=== PATIENT | female | born 1970 | race Caucasian/White ===

== ENCOUNTER 2017-02-17 07:36 | Emergency (ER) | payer BC ==
[~2017-02-17] VITALS: Ht 162.6 cm; Wt 58.0 kg
[~2017-02-17 07:36] MED LIST: ALBU18HF INHALATION; ALBU2.5V3 NEB; ALBU8.5H3 INH; ASPI-664 PO; MECL25TA2 PO; ONDA4TAB35 PO; PRED20TA PO; QUIN20TA23 PO
[2017-02-17 07:40] VITALS: Ht 162.6 cm; Wt 58.0 kg
[2017-02-17] MEDS ORDERED: ALBUTEROL 0.5% (NEB) 2.5 MG/0.5 ML AMP INH STA (07:59)
[2017-02-17] MEDS ORDERED: IPRATROPIUM (NEB) 0.5 MG/2.5 ML AMP INH STA (07:59)
[2017-02-17] MEDS ORDERED: METHYLPREDNISOLONE 125 MG INJ IM STA (07:59)
--- NOTE | 2017-02-17 08:04 | ERD ---
ER Documentation Chief Complaint Date/Time DATE: 02/17/17 Chief Complaint Asthma exacerbation HPI The patient is a 36-year-old female with past medical history of asthma, who presents to the Emergency Department with complaint of asthma exacerbation. The patient reports that approximately one week ago she developed URI-type symptoms, with onset of mild nonproductive cough, rhinorrhea and nasal congestion. She has been experiencing intermittent wheezing, though has been using her Ventolin HFA inhaler as directed. Over the past two days, she has noted increased wheezing, that does not resolve after use of her handheld inhaler. Therefore, she presents today. She admits to mild shortness of breath. Otherwise, denies chest pain, palpitations, lower extremity edema, calf swelling or calf tenderness. Denies recent travel, surgeries, procedures, or exogenous estrogen use. Denies history of DVT, PE, ACS, CHF, COPD. Denies prior hospitalizations or intubations secondary to asthma. Denies any sick contacts with similar symptoms. ROS All systems reviewed and are negative except as per history of present illness. Medications Home Meds Active Scripts Prednisone* (Prednisone*) 20 Mg Tab, 40 MG PO DAILY for 4 Days, TAB Prov:TENISHA GARCIA PA-C 02/17/17 Albuterol Sulfate* (Ventolin HFA*) 18 Gm Hfa.aer.ad, 2 PUFF INHALATION Q4H, #1 INHALER Prov:TENISHA GARCIA PA-C 02/17/17 Albuterol Sulfate* (Albuterol Sulfate* Neb) 0.083%-3 Ml Neb, 2.5 MG NEB Q4 Y for SHORTNESS OF BREATH, #30 EA Prov:SEAN ALBA PA-C 10/04/16 Albuterol Sulfate* (Proair HFA*) 8.5 Gm Hfa.aer.ad, 2 PUFF INH Q4, #1 INHALER Prov:SEAN ALBA PA-C 10/04/16 Prednisone* (Prednisone*) 20 Mg Tab, 40 MG PO DAILY for 4 Days, TAB Prov:SEAN ALBA PA-C 10/04/16 Prednisone* (Prednisone*) 20 Mg Tab, 40 MG PO DAILY for 4 Days, TAB Prov:TOM NGO DO 05/17/16 Albuterol Sulfate* (Ventolin HFA*) 18 Gm Hfa.aer.ad, 2 PUFF INHALATION Q4H, #1 INHALER Prov:TOM NGO DO 05/17/16 Ondansetron Hcl* (Zofran* ODT) 4 mg -ODT Tab.disper, 4 MG PO Q6 Y for NAUSEA AND /OR VOMITING, #8 TAB Prov:KARLI HERNANDEZ DO 04/07/16 Meclizine Hcl* (Antivert*) 25 Mg Tablet, 25 MG PO Q6H Y for DIZZINESS, #12 TAB Prov:KARLI HERNANDEZ DO 04/07/16 Reported Medications Quinapril Hcl (Quinapril Hcl) 20 Mg Tablet, 20 MG PO DAILY, #30 TAB 05/17/16 Aspirin* (Aspirin* EC) 81 Mg Tablet.dr, 81 MG PO DAILY, TAB 05/17/16 Allergies Allergies: Coded Allergies: No Known Allergy (Unverified , 04/07/16) PMhx/Soc History of Surgery: No Anesthesia Reaction: No Hx Neurological Disorder: No Hx Respiratory Disorders: Yes (ASTHMA) Hx Cardiac Disorders: No Hx Psychiatric Problems: No Hx Miscellaneous Medical Probl: No Hx Alcohol Use: No Hx Substance Use: No Hx Tobacco Use: No Smoking Status: Never smoker Physical Exam Vitals Vital Signs Date Time Temp Pulse Resp B/P Pulse Ox O2 Delivery O2 Flow Rate FiO2 02/17/17 08:24 84 20 97 21 02/17/17 07:40 98.1 84 18 140/65 98 Physical Exam GENERAL: Well-developed, well-nourished, female, in no acute respiratory distress. HEENT: Head is normocephalic, atraumatic. No scleral pallor or icterus. Pupils equal, round and reactive to light. Extraocular movements intact. Conjunctiva pink. Bilaterally tympanic membranes are clear with no evidence of erythema, effusion or dulling of the light reflex. Moist mucous membranes. No pharyngeal erythema or exudates. Uvula is midline. No trismus. No stridor. No excessive drooling. Phonation is normal. NECK: Supple. No masses, no tenderness, no lymphadenopathy. Trachea midline. No nuchal rigidity. No meningismus. Range of motion. RESPIRATORY: Scattered wheezes bilaterally. No rales or rhonchi. No accessory muscle use. Symmetric expansion. CARDIOVASCULAR: Regular rate and rhythm. S1 and S2 normal. No murmurs, rubs, or gallops. Distal pulses are palpable, 2+ bilaterally. Capillary refill is less than 2 seconds. GASTROINTESTINAL: Abdomen is soft, non-tender, and non-distended. EXTREMITIES: No clubbing, cyanosis, or edema. Normal skin perfusion. Moving all extremities. Muscle tone is normal. No focal swelling or erythema. NEUROLOGIC: The patient is alert, awake, and oriented x 3. No focal neurologic deficits. INTEGUMENT: Skin is intact. Warm and dry. No rashes, no petechiae present. PSYCHIATRIC: Cooperative. Appropriate. Results 24 hrs Current Medications Medications (Trade) Dose Ordered Sig/Osbaldo Route PRN Reason Start Time Stop Time Status Last Admin Dose Admin Albuterol (Proventil 0.5% (Neb)) 5 mg ONCE STAT INH 02/17/17 07:59 02/17/17 08:02 DC 02/17/17 08:21 Ipratropium [place] (Atrovent 0.02% (Neb)) 1 mg ONCE STAT INH 02/17/17 07:59 02/17/17 08:02 DC 02/17/17 08:21 Methylprednisolone Sodium Succinate (Solu-Medrol) 125 mg ONCE STAT IM 02/17/17 07:59 02/17/17 08:02 DC 02/17/17 08:06 Procedures/MDM DIAGNOSTIC TESTS AND INTERPRETATION: PROCEDURE: XR Chest. CLINICAL INDICATION: Asthma TECHNIQUE: Single frontal view of the chest was obtained COMPARISON: 10/04/2016 FINDINGS:The heart and mediastinum are within normal limits. The lungs are clear. There is no pleural effusion or pneumothorax. IMPRESSION:No acute disease. .Ancelmo Calvillo MD, MD Date Time Electronically viewed and signed by .Ancelmo Calvillo MD, on 02/17/2017 08: 34 MEDICAL DECISION MAKING: This is a 46-year-old female presenting to the emergency department with recent onset of cough, rhinorrhea, nasal congestion, wheezing and shortness of breath. Patient noted to have wheezing auscultated throughout bilateral lung guillen on physical examination, though with no rales, no rhonchi. She was placed in a room and observed. The patient was given Albuterol and Atrovent breathing treatments. Solu-Medrol 125 mg IM was also administered. After rest, a period of observation, medication and breathing treatment, the patient had resolution of her wheezing, and felt significantly better. Her lungs are now clear to auscultation bilaterally, with no rales, rhonchi or wheezing. No intercostal retractions, nasal flaring, accessory muscle use or signs of respiratory distress. Chest x-ray with no acute cardiopulmonary abnormalities. Upon review and interpretation of the patient's presentation and overall ER course, I believe the patient's symptoms to be consistent with upper respiratory infection and asthma exacerbation. Clinical presentation is not consistent with pneumonia, acute coronary syndrome, pulmonary embolism, acute respiratory distress syndrome, status asthmaticus, sinusitis, otitis media, otitis externa, pharyngitis, airway obstruction, anaphylaxis, pneumothorax, acute/surgical abdomen, sepsis, dehydration or meningitis. At this time, the patient is in stable condition, and no longer experiencing any wheezing or shortness of breath, and therefore can be discharged home with prescriptions for a short course of prednisone and Ventolin HFA. She is advised to follow-up with her primary care provider for reevaluation and further management within 1-2 days, or return to the ER sooner for any new or worsening symptoms. I shared my medical decision making and plan with the patient at length and in great detail, and she verbally understands and agrees with the plan for further observation and care as an outpatient. At the time of discharge, all questions were answered. Departure Diagnosis: Primary Impression: Asthma with acute exacerbation Asthma severity: unspecified severity Qualified Code: J45.901 - Asthma with acute exacerbation, unspecified asthma severity Additional Impression: Upper respiratory infection URI type: unspecified URI Qualified Code: J06.9 - Upper respiratory tract infection, unspecified type Condition: Stable Patient Instructions: Asthma, Asthma, Acute (Adult) Additional Instructions: Llame al doctor MAANA y dominick alexandre HARMAN PARA DENTRO DE 1-2 RUSSELL.Dgale a la secretaria que nosotros le instruimos hacer esta harman.Avise o llame si weaver condicin se empeora antes de la harman. Regresa aqui si peor o no mejor. TENISHA GARCIA PA-C Feb 17, 2017 08:04
--- NOTE | 2017-02-17 08:34 | RADRPT ---
PROCEDURE: XR Chest. CLINICAL INDICATION: Asthma TECHNIQUE: Single frontal view of the chest was obtained COMPARISON: 10/04/2016 FINDINGS: The heart and mediastinum are within normal limits. The lungs are clear. There is no pleural effusion or pneumothorax. RPTAT: AA IMPRESSION: No acute disease. .Ancelmo Calvillo MD, MD Date Time Electronically viewed and signed by .Ancelmo Calvillo MD, on 02/17/2017 08:34 .S/
[2017-02-17] MEDS ORDERED: PRED20TA PO ×2 (09:13→09:14)
[2017-02-17] MEDS ORDERED: ALBU18HF INHALATION (09:13)
[2017-02-17 09:35] VITALS: BP 144/73; PULSE 78; RESP 18; TEMP 97.8
== END 2017-02-17 09:35 | disposition home or self-care (01) ==
LOC: FTE 07:36
DX: J45.901 Unspecified asthma with (acute) exacerbation (principal); J06.9 Acute upper respiratory infection, unspecified; Z79.82 Long term (current) use of aspirin
CPT/HCPCS: 71010; 94644; 96372; 99284; J2930; Z7610

== ENCOUNTER 2017-05-18 11:25 | Emergency (ER) | payer BC ==
[~2017-05-18] VITALS: Ht 160 cm; Wt 59.5 kg
[2017-05-18 11:30] VITALS: Ht 160 cm; Wt 59.5 kg
[2017-05-18 12:29] LABS: BASOPHIL # 0.1 10^3/ul (0.0-0.1); BASOPHILS % 0.6 % (0.0-2.0); EOSINOPHILS # 0.3 10^3/ul (0.0-0.5); EOSINOPHILS % 3.2 % (0.0-7.0); HEMATOCRIT 40.3 % (37.0-47.0); HEMOGLOBIN 13.1 g/dl (12.0-16.0); LYMPHOCYTES # 1.7 10^3/ul (0.8-2.9); LYMPHOCYTES % 20.7 % (15.0-51.0); MEAN CORPUSCULAR HEMOGLOBIN 31.3 pg (29.0-33.0); MEAN CORPUSCULAR HGB CONC 32.5 g/dl (32.0-37.0); MEAN CORPUSCULAR VOLUME 96.4 fl (82.0-101.0); MEAN PLATELET VOLUME 12.1 fl (7.4-10.4); MONOCYTE # 0.6 10^3/ul (0.3-0.9); MONOCYTES % 6.9 % (0.0-11.0); NEUTROPHIL # 5.7 10^3/ul (1.6-7.5); NEUTROPHILS % 68.2 % (39.0-77.0); PLATELET COUNT 186 10^3/UL (140-415); RED BLOOD COUNT 4.18 10^6/ul (4.20-5.40); RED CELL DISTRIBUTION WIDTH 12.4 % (11.5-14.5); WHITE BLOOD COUNT 8.4 10^3/ul (4.8-10.8)
[2017-05-18 12:51] LABS: ANION GAP 16 (8-16); BLOOD UREA NITROGEN 9 mg/dl (7-20); CALCIUM 9.5 mg/dl (8.4-10.2); CARBON DIOXIDE 27 mmol/L (21-31); CHLORIDE 105 mmol/L (97-110); CREATININE 0.63 mg/dl (0.44-1.00); GLUCOSE 95 mg/dl (70-220); POTASSIUM 3.6 mmol/L (3.5-5.1); SODIUM 144 mmol/L (135-144)
[2017-05-18 13:00] LABS: TROPONIN-I < 0.012 ng/ml (0.00-0.12)
--- NOTE | 2017-05-18 13:38 | RADRPT ---
PROCEDURE: XR Chest. CLINICAL INDICATION: chest pain TECHNIQUE: Single frontal view of the chest was obtained COMPARISON: 02/17/2017 FINDINGS: The heart and mediastinum are within normal limits. The lungs are clear. There is no pleural effusion or pneumothorax. RPTAT: AA IMPRESSION: No acute disease. .Ancelmo Calvillo MD, MD Date Time Electronically viewed and signed by .Ancelmo Calvillo MD, on 05/18/2017 13:38 .S/
[2017-05-18 15:24] VITALS: BP 139/75; PULSE 80; RESP 16; TEMP 98.6
--- NOTE | 2017-05-18 20:40 | ERD ---
ER Documentation Chief Complaint Date/Time DATE: 05/18/17 TIME: 20:37 Chief Complaint states this morning blood pressure was high but didn't take medication HPI Patient is a 38-year-old female to the presents to the emergency department for concerns of an elevated blood pressure. Patient states she was drinking cat tea for the first when she felt slight dizzy earlier earlier this morning. Patient states using her sister's blood pressure machine, she checked her blood pressure and it was elevated to be 170/80. Patient states she rushed to the ED. Patient denies taking any blood pressure medication today. Patient states she does feel some mild chest discomfort and tightness intermittent over last two days. Patient denies any radiation of the pain. Patient denies any shortness of breath. Pain is nonpleuritic. Patient currently denies any pain or dizziness. Patient denies any headache, blurry vision, nausea, vomiting, abdominal pain, left upper extremity pain, diaphoresis or loss of consciousness. Patient denied any hx of PE/DVT, recent surgeries, travel, exogenous estrogen use. ROS All systems reviewed and are negative except as per history of present illness. Medications Home Meds Active Scripts Prednisone* (Prednisone*) 20 Mg Tab, 40 MG PO DAILY for 4 Days, TAB Prov:TENISHA GARCIA PA-C 02/17/17 Albuterol Sulfate* (Ventolin HFA*) 18 Gm Hfa.aer.ad, 2 PUFF INHALATION Q4H, #1 INHALER Prov:TENISHA GARCIA PA-C 02/17/17 Albuterol Sulfate* (Albuterol Sulfate* Neb) 0.083%-3 Ml Neb, 2.5 MG NEB Q4 Y for SHORTNESS OF BREATH, #30 EA Prov:SEAN ALBA PA-C 10/04/16 Albuterol Sulfate* (Proair HFA*) 8.5 Gm Hfa.aer.ad, 2 PUFF INH Q4, #1 INHALER Prov:SEAN ALBA PA-C 10/04/16 Prednisone* (Prednisone*) 20 Mg Tab, 40 MG PO DAILY for 4 Days, TAB Prov:SEAN ALBA PA-C 10/04/16 Prednisone* (Prednisone*) 20 Mg Tab, 40 MG PO DAILY for 4 Days, TAB Prov:TOM NGO DO 7/25/16 Albuterol Sulfate* (Ventolin HFA*) 18 Gm Hfa.aer.ad, 2 PUFF INHALATION Q4H, #1 INHALER Prov:TOM NGO DO 05/17/16 Ondansetron Hcl* (Zofran* ODT) 4 mg -ODT Tab.disper, 4 MG PO Q6 Y for NAUSEA AND /OR VOMITING, #8 TAB Prov:KARLI HERNANDEZ DO 04/07/16 Meclizine Hcl* (Antivert*) 25 Mg Tablet, 25 MG PO Q6H Y for DIZZINESS, #12 TAB Prov:KARLI HERNANDEZ DO 04/07/16 Reported Medications Quinapril Hcl (Quinapril Hcl) 20 Mg Tablet, 20 MG PO DAILY, #30 TAB 05/17/16 Aspirin* (Aspirin* EC) 81 Mg Tablet.dr, 81 MG PO DAILY, TAB 05/17/16 Allergies Allergies: Coded Allergies: No Known Allergy (Unverified , 04/07/16) PMhx/Soc History of Surgery: No Anesthesia Reaction: No Hx Neurological Disorder: No Hx Respiratory Disorders: Yes (ASTHMA) Hx Cardiac Disorders: No Hx Psychiatric Problems: No Hx Miscellaneous Medical Probl: No Hx Alcohol Use: No Hx Substance Use: No Hx Tobacco Use: No Smoking Status: Never smoker FmHx Family History: No diabetes Physical Exam Vitals Vital Signs Date Time Temp Pulse Resp B/P Pulse Ox O2 Delivery O2 Flow Rate FiO2 05/18/17 15:24 98.6 80 16 139/75 100 Room Air 05/18/17 11:30 98.1 85 18 168/79 97 Physical Exam GENERAL: Well-developed, well-nourished female. Appears in no acute distress. HEAD: Normocephalic, atraumatic. EYES: Pupils are equally reactive bilaterally. EOMs grossly intact. No conjunctival erythema. ENT: Moist mucous membranes. No uvula deviation. No kissing tonsils. NECK: Supple. No meningismus. Normal range of motion of the neck. LUNG: Clear to auscultation bilaterally. No rhonchi, wheezing, rales or coarse breath sounds. HEART: Regular rate and rhythm. No murmurs, rubs or gallops. BACK: No midline tenderness. EXTREMITIES: Equal pulses bilaterally. No peripheral clubbing, cyanosis or edema. No unilateral leg swelling. NEUROLOGIC: Alert and oriented x3, cooperative. Mood and affect appropriate to situation. Cranial nerves II through XII are grossly intact. Normal speech. Motor exam: 5/5 strength in upper and lower extremities. Sensory exam: Sensation intact to light touch on all four extremities. Cerebellar function exam: No dysmetria on [id number] test. Steady gait. No pronator drift. SKIN: Normal color. Warm and dry. No rashes or lesions. Result Diagram: 05/18/17 1215 05/18/17 1215 Results 24 hrs Laboratory Tests Test 05/18/17 12:15 White Blood Count 8.410^3/ul Red Blood Count 4.1810^6/ul Hemoglobin 13.1g/dl Hematocrit 40.3% Mean Corpuscular Volume 96.4fl Mean Corpuscular Hemoglobin 31.3pg Mean Corpuscular Hemoglobin Concent 32.5g/dl Red Cell Distribution Width 12.4% Platelet Count 88679^3/UL Mean Platelet Volume 12.1fl Neutrophils % 68.2% Lymphocytes % 20.7% Monocytes % 6.9% Eosinophils % 3.2% Basophils % 0.6% Nucleated Red Blood Cells % 0.0/100WBC Neutrophils # 5.710^3/ul Lymphocytes # 1.710^3/ul Monocytes # 0.610^3/ul Eosinophils # 0.310^3/ul Basophils # 0.110^3/ul Nucleated Red Blood Cells # 0.010^3/ul Sodium Level 144mmol/L Potassium Level 3.6mmol/L Chloride Level 105mmol/L Carbon Dioxide Level 27mmol/L Anion Gap 16 Blood Urea Nitrogen 9mg/dl Creatinine 0.63mg/dl Glucose Level 95mg/dl Calcium Level 9.5mg/dl Troponin I < 0.012ng/ml Procedures/MDM ED COURSE: The patient was stable throughout ED course. I kept the patient and/or family informed of laboratory and diagnostic imaging results throughout the ED course. Of note, patient did take her BP home medications while waiting for blood work and imaging results. EKG: Read by Dr. Man, attending physician. EKG shows normal sinus rhythm at a rate of 79 bpm. No arrhythmias, acute ST elevations or T wave changes were noted. DIAGNOSTIC IMAGING: Read by radiologist. Patient: YURI DELEON : 1970 Age: 46 Sex: F [id number] DOS: 05/18/17 1201 Ordering MD: ASHWINI LUA PA-C Location: [facility] Room/Bed: PROCEDURE: XR Chest. CLINICAL INDICATION: chest pain TECHNIQUE: Single frontal view of the chest was obtained COMPARISON: 02/17/2017 FINDINGS: The heart and mediastinum are within normal limits. The lungs are clear. There is no pleural effusion or pneumothorax. RPTAT: AA IMPRESSION: No acute disease. .Ancelmo Calvillo MD, MD Date Time Electronically viewed and signed by .Ancelmo Calvillo MD, on 05/18/2017 13: 38 .S/ CC: ASHWINI LUA PA-C MEDICAL DECISION MAKING: This is a 46 year old female who presents to the ED with concerns of dizziness, elevated BP and intermittent CP x 2 days. Patient denied any dizziness or chest pain at this time. Vital signs were reviewed. Patient was afebrile. Patient was not hypoxic. Cardiac exam was normal. Lung exam was normal. Full neuro was negative. EKG was within normal limits, reviewed by ED physician. CXR was within normal limits. Low suspicion for acute coronary syndrome, arrhythmia or pericarditis. Trop was negative. CBC showed no signs of anemia or systemic infection.CMP showed no evidence of electrolyte abnormalities, severe acidosis, alkalosis, renal failure, or liver disease. Patient's heart score was calculated to be 2, low risk at this time for major cardiac adverse effect. Low suspicion for ACS, pericarditis, aortic dissection, pneumothorax, pneumonia or pleural effusion. BP was improved prior to discharge. Given these findings, the patients presentation is most consistent with elevated blood pressure and chest pain of unknown etiology. Patient was advised to take BP medication as prescribed and keep log of BP readings to show her PCP at followup visit. DISCHARGE: At this time, patient is stable for discharge and outpatient management. A copy of all imaging and blood work studies obtained were given to the patient. I have instructed the patient to follow-up with his/her primary care physician in 1-2 days. If symptoms persist, patient may need to see a specialist for further examinations and testing. I have instructed the patient to promptly return to the ER at any time for any new or worsening symptoms including increased increased pain, fever, nausea, vomiting, numbness, weakness, diaphoresis or LOC. The patient and/or family expressed understanding of and agreement with this plan. All questions were answered. Home care instructions were provided. Patients blood pressure was elevated (>120/80) but appears stable without evidence of hypertensive emergency, hypertensive urgency or end-organ failure. I had discussion with the patient about the risks of hypertension. I have advised the patient to follow up with his/her primary care physician for outpatient monitoring and treatment for hypertension in 2-3 days. I have instructed the patient to return to the ER for any new or worsening symptoms including chest pain, shortness of breath, headache, blurred vision, confusion, nausea, vomiting or LOC. Departure Diagnosis: Primary Impression: Hypertension Hypertension type: unspecified secondary hypertension Qualified Code: I15.9 - Secondary hypertension Additional Impression: Chest pain Condition: Stable Patient Instructions: High Blood Pressure (Hypertension) Referrals: MADIE KUO MD (PCP) Additional Instructions: Follow-up with your primary care physician for further management of your elevated blood pressures. He may need medication changes. Return to the emergency department for any new or worsening symptoms including but not limited to severe pain, chest pain, shortness of breath, nausea, vomiting, diaphoresis or loss of consciousness. Call your primary care doctor TOMORROW for an appointment during the next 1-2 days.See the doctor sooner or return here if your condition worsens before your appointment time. ASHWINI LUA PA-C May 18, 2017 20:40
== END 2017-05-18 15:26 | disposition home or self-care (01) ==
LOC: FTE 11:25
DX: I15.9 Secondary hypertension, unspecified (principal); R07.9 Chest pain, unspecified; J45.909 Unspecified asthma, uncomplicated
CPT/HCPCS: 71010; 80048; 84484; 85025; 93005

== ENCOUNTER 2017-07-16 16:24 | Emergency (ER) | payer BC ==
[~2017-07-16] VITALS: Ht 152.4 cm; Wt 58.0 kg
[2017-07-16 16:30] VITALS: Ht 152.4 cm; Wt 58.0 kg
[2017-07-16] MEDS ORDERED: DEXAMETHASONE 10 MG/ML 1 ML INJ IM STA (16:42)
[2017-07-16] MEDS ORDERED: ALBUTEROL 0.083% (NEB) 2.5 MG/3 ML AMP NEB STA (16:42)
[2017-07-16] MEDS ORDERED: IPRATROPIUM (NEB) 0.5 MG/2.5 ML AMP NEB STA (16:42)
--- NOTE | 2017-07-16 16:44 | ERD ---
ER Documentation Chief Complaint Date/Time DATE: 07/16/17 TIME: 16:43 Chief Complaint EXACERBATION OF ASTHMA, BILAT WHEEZES NOTED, SOB AT REST HPI 46-year-old female is here for asthma exacerbation. She has a history of asthma and this particular exacerbation began early this morning. She tried her inhaler but it did not help. No fever. No chest pain. ROS All systems reviewed and are negative except as per history of present illness. Medications Home Meds Active Scripts Albuterol Sulfate* (Proair HFA*) 8.5 Gm Hfa.aer.ad, 2 PUFF INH Q4H Y for WHEEZING AND SOB, #1 INHALER Prov:KIA TA PA-C 07/16/17 Prednisone* (Prednisone*) 20 Mg Tab, 40 MG PO DAILY for 4 Days, TAB Prov:TENISHA GARCIA PA-C 02/17/17 Albuterol Sulfate* (Ventolin HFA*) 18 Gm Hfa.aer.ad, 2 PUFF INHALATION Q4H, #1 INHALER Prov:TENISHA GARCIA PA-C 02/17/17 Albuterol Sulfate* (Albuterol Sulfate* Neb) 0.083%-3 Ml Neb, 2.5 MG NEB Q4 Y for SHORTNESS OF BREATH, #30 EA Prov:SEAN ALBA PA-C 10/04/16 Albuterol Sulfate* (Proair HFA*) 8.5 Gm Hfa.aer.ad, 2 PUFF INH Q4, #1 INHALER Prov:SEAN ALBA PA-C 10/04/16 Prednisone* (Prednisone*) 20 Mg Tab, 40 MG PO DAILY for 4 Days, TAB Prov:SEAN ALBA PA-C 10/04/16 Prednisone* (Prednisone*) 20 Mg Tab, 40 MG PO DAILY for 4 Days, TAB Prov:TOM NGO DO 05/17/16 Albuterol Sulfate* (Ventolin HFA*) 18 Gm Hfa.aer.ad, 2 PUFF INHALATION Q4H, #1 INHALER Prov:TOM NGO DO 05/17/16 Ondansetron Hcl* (Zofran* ODT) 4 mg -ODT Tab.disper, 4 MG PO Q6 Y for NAUSEA AND /OR VOMITING, #8 TAB Prov:KARLI HERNANDEZ DO 04/07/16 Meclizine Hcl* (Antivert*) 25 Mg Tablet, 25 MG PO Q6H Y for DIZZINESS, #12 TAB Prov:KARLI HERNANDEZ DO 04/07/16 Reported Medications Quinapril Hcl (Quinapril Hcl) 20 Mg Tablet, 20 MG PO DAILY, #30 TAB 05/17/16 Aspirin* (Aspirin* EC) 81 Mg Tablet.dr, 81 MG PO DAILY, TAB 05/17/16 Allergies Allergies: Coded Allergies: No Known Allergy (Unverified , 07/16/17) PMhx/Soc History of Surgery: No Anesthesia Reaction: No Hx Neurological Disorder: No Hx Respiratory Disorders: Yes (ASTHMA) Hx Cardiac Disorders: No Hx Psychiatric Problems: No Hx Miscellaneous Medical Probl: No Hx Alcohol Use: No Hx Substance Use: No Hx Tobacco Use: No FmHx Family History: No diabetes Physical Exam Vitals Vital Signs Date Time Temp Pulse Resp B/P Pulse Ox O2 Delivery O2 Flow Rate FiO2 07/16/17 17:18 89 18 97 21 07/16/17 16:54 88 18 96 21 07/16/17 16:30 98.3 98 22 171/91 99 Physical Exam INITIAL VITAL SIGNS: Reviewed by me GENERAL: Awake, alert and oriented x 4, well appearing, nontoxic, speaking in full sentences. No acute distress HEAD: Atraumatic RESPIRATORY: Bilateral respiratory wheezing symmetric chest wall rise. Peaks in full sentences. No accessory muscle use. CV: Regular rate and rhythm. No murmurs, rubs, or gallops. Results 24 hrs Current Medications Medications (Trade) Dose Ordered Sig/Osbaldo Route PRN Reason Start Time Stop Time Status Last Admin Dose Admin Albuterol (Proventil 0.083% (Neb)) 2.5 mg ONCE STAT NEB 07/16/17 16:42 07/16/17 16:43 DC 07/16/17 16:52 Ipratropium [place] (Atrovent 0.02% (Neb)) 0.5 mg ONCE STAT NEB 07/16/17 16:42 07/16/17 16:43 DC 07/16/17 16:52 Dexamethasone (Decadron) 10 mg ONCE STAT IM 07/16/17 16:42 07/16/17 16:43 DC 07/16/17 17:22 Albuterol (Proventil 0.5% (Neb)) 10 mg ONCE STAT INH 07/16/17 17:11 07/16/17 17:12 DC 07/16/17 17:17 Procedures/MDM Ple[place] 46-year-old nondiabetic female presents with asthma exacerbation. The differential diagnosis includes but is not limited to asthma, COPD, pneumonia, pulmonary embolus, pleural effusion, congestive heart failure, and others. She does have inspiratory wheezing on examination. She was given Decadron IM and a breathing treatment with improvement of her symptoms and discharged home with albuterol inhaler. Patient counseled regarding my diagnostic impression and care plan. Prior to discharge all questions answered. Pt agrees with treatment plan and understands strict return precautions. Pt is instructed to follow up with primary care provider within 24-48 hours. Precautionary instructions provided including instructions to return to the ER if not improving or for any worsening or changing symptoms or concerns. Departure Diagnosis: Primary Impression: Asthma exacerbation Condition: Stable KIA TA PA-C Jul 16, 2017 16:44
[2017-07-16] MEDS ORDERED: ALBUTEROL 0.5% (NEB) 2.5 MG/0.5 ML AMP INH STA (17:11)
[2017-07-16] MEDS ORDERED: ALBU8.5H3 INH (17:47)
== END 2017-07-16 18:19 | disposition home or self-care (01) ==
LOC: FTE 16:24
DX: J45.901 Unspecified asthma with (acute) exacerbation (principal); Z79.82 Long term (current) use of aspirin
CPT/HCPCS: 94644; 94664; 96372; 99284; J1100; Z7610

== ENCOUNTER 2017-10-12 07:46 | Emergency (ER) | payer BC ==
[~2017-10-12] VITALS: Wt 58.8 kg
[2017-10-12] MEDS ORDERED: IPRATROPIUM (NEB) 0.5 MG/2.5 ML AMP NEB STA (08:20)
[2017-10-12] MEDS ORDERED: ALBUTEROL 0.083% (NEB) 2.5 MG/3 ML AMP NEB STA (08:20)
[2017-10-12] MEDS ORDERED: predniSONE 20 MG TAB PO STA (08:20)
--- NOTE | 2017-10-12 09:25 | ERD ---
ER Documentation Chief Complaint Chief Complaint cough x 1 week HPI Patient is a 47-year-old female with a history of asthma who presents ED for concerns of a cough 1 week. She describes her cough to be productive in nature with occasional white phlegm production. Patient also reports increased nasal congestion. Patient reports green nasal secretions. Patient states she has been taking Tylenol for symptoms. Patient denies taking any cough medications. Patient denies any fevers, chills, nausea, vomiting, chest pain, shortness of breath, diaphoresis or loss consciousness. Patient denies any recent travel. Patient denies any sick contacts. Patient did receive a flu vaccine this year. Patient denies any arm pain, back pain, headache, neck pain , neck stiffness. ROS All systems reviewed and are negative except as per history of present illness. Medications Home Meds Active Scripts Cetirizine Hcl* (Zyrtec*) 10 Mg Capsule, 10 MG PO DAILY, #10 TAB.CHEW Prov:ASHWINI LUA PA-C 10/12/17 Dextromethorphan Hb-Promethazine Hcl* (Promethazine DM* Syrup) 473 Ml Syrup, 5 ML PO Q6 Y for COUGH, #1 BOTTLE Prov:ASHWINI LUA PA-C 10/12/17 Albuterol Sulfate* (Proair HFA*) 8.5 Gm Hfa.aer.ad, 2 PUFF INH Q4, #1 INHALER Prov:ASHWINI LUA PA-C 10/12/17 Prednisone* (Prednisone*) 20 Mg Tab, 40 MG PO DAILY for 4 Days, TAB Prov:ASHWINI LUA PA-C 10/12/17 Albuterol Sulfate* (Proair HFA*) 8.5 Gm Hfa.aer.ad, 2 PUFF INH Q4H Y for WHEEZING AND SOB, #1 INHALER Prov:KIA TA PA-C 07/16/17 Prednisone* (Prednisone*) 20 Mg Tab, 40 MG PO DAILY for 4 Days, TAB Prov:TENISHA GARCIA PA-C 02/17/17 Albuterol Sulfate* (Ventolin HFA*) 18 Gm Hfa.aer.ad, 2 PUFF INHALATION Q4H, #1 INHALER Prov:TENISHA GARCIA PA-C 02/17/17 Albuterol Sulfate* (Albuterol Sulfate* Neb) 0.083%-3 Ml Neb, 2.5 MG NEB Q4 Y for SHORTNESS OF BREATH, #30 EA Prov:ANJALISEAN Dami VERDIN 10/04/16 Albuterol Sulfate* (Proair HFA*) 8.5 Gm Hfa.aer.ad, 2 PUFF INH Q4, #1 INHALER Prov:ANJALISEAN Lomax PA-C 10/04/16 Prednisone* (Prednisone*) 20 Mg Tab, 40 MG PO DAILY for 4 Days, TAB Prov:ANJALISEAN Dami VERDIN 10/04/16 Prednisone* (Prednisone*) 20 Mg Tab, 40 MG PO DAILY for 4 Days, TAB Prov:TOM NGO DO 05/17/16 Albuterol Sulfate* (Ventolin HFA*) 18 Gm Hfa.aer.ad, 2 PUFF INHALATION Q4H, #1 INHALER Prov:TOM NGO DO 05/17/16 Ondansetron Hcl* (Zofran* ODT) 4 mg -ODT Tab.disper, 4 MG PO Q6 Y for NAUSEA AND /OR VOMITING, #8 TAB Prov:KARLI HERNANDEZ 04/07/16 Meclizine Hcl* (Antivert*) 25 Mg Tablet, 25 MG PO Q6H Y for DIZZINESS, #12 TAB Prov:KARLI HERNANDEZ DO 04/07/16 Reported Medications Quinapril Hcl (Quinapril Hcl) 20 Mg Tablet, 20 MG PO DAILY, #30 TAB 05/17/16 Aspirin* (Aspirin* EC) 81 Mg Tablet.dr, 81 MG PO DAILY, TAB 05/17/16 Allergies Allergies: Coded Allergies: No Known Allergy (Unverified , 10/12/17) PMhx/Soc History of Surgery: No Anesthesia Reaction: No Hx Neurological Disorder: No Hx Respiratory Disorders: Yes (ASTHMA) Hx Cardiac Disorders: Yes (htn) Hx Psychiatric Problems: No Hx Miscellaneous Medical Probl: No Hx Alcohol Use: No Hx Substance Use: No Hx Tobacco Use: No Smoking Status: Never smoker Physical Exam Vitals Vital Signs Date Time Temp Pulse Resp B/P Pulse Ox O2 Delivery O2 Flow Rate FiO2 10/12/17 10:09 98.2 86 18 132/76 98 Room Air 10/12/17 09:06 79 19 96 21 10/12/17 07:49 97.9 81 18 156/74 99 Physical Exam GENERAL: Well-developed, well-nourished female. Appears in no acute distress. Speaking in full sentences. HEAD: Normocephalic, atraumatic. No deformities or ecchymosis. EYE: Pupils equal, round, and reactive to light. EOMs intact. No conjunctival erythema. No eye discharge. ENT: External ear without any masses or tenderness. Auditory canals clear bilaterally. TM visualized bilaterally, non-erythematous, non-bulging. Nasal congestion noted. Oropharynx is pink without any tonsillar erythema or exudates. No uvula deviation. No kissing tonsils. NECK: Supple. No meningismus. Normal ROM of the neck. LUNG: Faint expiratory wheezing noted in bilateral lower lobes. No abdominal retractions. No nasal flaring. No tripoding. HEART: Regular rate and rhythm. No murmurs, rubs or gallops. BACK: No midline tenderness. EXTREMITES: Equal pulses bilaterally. No peripheral clubbing, cyanosis or edema. No unilateral leg swelling. NEUROLOGIC: Alert and oriented to person, place and time. Moving all four extremities. 5/5 strength in all extremities. Normal speech. Steady gait. SKIN: Normal color. Warm and dry. No rashes or lesions. Results 24 hrs Current Medications Medications (Trade) Dose Ordered Sig/Osbaldo Route PRN Reason Start Time Stop Time Status Last Admin Dose Admin Albuterol (Proventil 0.083% (Neb)) 5 mg ONCE STAT NEB 10/12/17 08:20 10/12/17 08:22 DC 10/12/17 09:05 Ipratropium [place] (Atrovent 0.02% (Neb)) 0.5 mg ONCE STAT NEB 10/12/17 08:20 10/12/17 08:22 DC 10/12/17 09:05 Prednisone (Prednisone) 40 mg ONCE STAT PO 10/12/17 08:20 10/12/17 08:22 DC 10/12/17 08:26 Procedures/MDM ED COURSE: The patient was stable throughout ED course. I kept the patient and/or family informed of laboratory and diagnostic imaging results throughout the ED course. DIAGNOSTIC IMAGING: Read by radiologist. Patient: YURI DELEON : 1970 Age: 47 Sex: F MR #: [id number] DOS: 10/12/17 0854 Ordering MD: ASHWINI LUA PA-C Location: [facility] Room/Bed: PROCEDURE: XR Chest. CLINICAL INDICATION: Cough times 1 week TECHNIQUE: Single portable view of the chest was obtained COMPARISON: February 17, 2017 FINDINGS: The trachea is midline. The cardiac silhouette and pulmonary vascularity are within normal limits. The lungs are clear. The costophrenic angles are sharp. IMPRESSION: 1. No evidence of acute cardiopulmonary disease. RPTAT: AAPP Physician Jorge Date Time Electronically viewed and signed by Physician Jorge on 10/12/2017 09:52 JL/ CC: ASHWINI LUA PA-C MEDICATIONS GIVEN: Albuterol/ipratropium breathing treatment, Prednisone Patient tolerated medication well with no adverse reactions. Patient reported improvement in pain. MEDICAL DECISION MAKING: This is a 47-year-old female with a past medical history of asthma who presents ED for concerns of a cough 1 week. She also reports nasal congestion. Vital signs were reviewed. Patient was afebrile. Patient was not hypoxic. ENT exam was normal. Lung exam initially revealed faint expiratory wheezing. Patient was given a breathing treatment prednisone here in the ED. Upon reexamination, patient had improved breath sounds. Patient stated that she felt that her symptoms are improved. Chest x-ray was unremarkable. Given these findings, the patients presentation is most consistent with asthma exacerbation likely a viral etiology. Low suspicion for ACS, pleural effusion, CHF, pneumonia, meningitis, sinusitis, otitis externa, acute otitis media, strep pharyngitis, epiglottitis or peritonsillar abscess. Patient had no signs of respiratory distress or respiratory failure. Patient was nontoxic, [id number] prior to discharge. Patient's O2 sat remained above 95% throughout the ED course. PRESCRIPTIONS: Albuterol, Prednisone, Zyrtec, Promethazine DM cough syrup DISCHARGE: At this time, patient is stable for discharge and outpatient management. Supportive therapies such as OTC throat lozenges, salt water gurgles, popsicles and jello discussed. I have instructed the patient to follow-up with his/her primary care physician in 1-2 days. I have instructed the patient to promptly return to the ER for any new or worsening symptoms including increased pain, swelling, fever, nausea, vomiting, weakness or difficulty breathing. The patient and/or family expressed understanding of and agreement with this plan. All questions were answered. Home care instructions were provided. Patients blood pressure was elevated (>120/80) but appears stable without evidence of hypertensive emergency, hypertensive urgency or end-organ failure. I had discussion with the patient about the risks of hypertension. I have advised the patient to follow up with his/her primary care physician for outpatient monitoring and treatment for hypertension in 2-3 days. I have instructed the patient to return to the ER for any new or worsening symptoms including chest pain, shortness of breath, headache, blurred vision, confusion, nausea, vomiting or LOC. Disclaimer: Inadvertent spelling and grammatical errors are likely due to EHR/ dictation software use and do not reflect on the overall quality of patient care. Also, please note that the electronic time recorded on this note does not necessarily reflect the actual time of the patient encounter. Departure Diagnosis: Primary Impression: Asthma exacerbation Asthma severity: mild Asthma persistence: intermittent Qualified Code: J45.21 - Mild intermittent asthma with exacerbation Condition: Stable Patient Instructions: Asthma Medications Additional Instructions: Call your primary care doctor TOMORROW for an appointment during the next 1-2 days.See the doctor sooner or return here if your condition worsens before your appointment time. ASHWINI LUA PA-C Oct 12, 2017 09:25
--- NOTE | 2017-10-12 09:53 | RADRPT ---
PROCEDURE: XR Chest. CLINICAL INDICATION: Cough times 1 week TECHNIQUE: Single portable view of the chest was obtained COMPARISON: February 17, 2017 FINDINGS: The trachea is midline. The cardiac silhouette and pulmonary vascularity are within normal limits. T he lungs are clear. The costophrenic angles are sharp. IMPRESSION: 1. No evidence of acute cardiopulmonary disease. RPTAT: AAPP Physician Jorge Date Time Electronically viewed and signed by Teodoro Sandoval Physician on 10/12/2017 09:52 MARLENI/
[2017-10-12] MEDS ORDERED: ALBU8.5H3 INH (10:02)
[2017-10-12] MEDS ORDERED: PRED20TA PO (10:02)
[2017-10-12] MEDS ORDERED: CETI10CA PO (10:03)
[2017-10-12] MEDS ORDERED: D-ME473S2 PO (10:03)
[2017-10-12 10:09] VITALS: BP 132/76; PULSE 86; RESP 18; TEMP 98.2
== END 2017-10-12 10:10 | disposition home or self-care (01) ==
LOC: FTE 07:46
DX: J45.21 Mild intermittent asthma with (acute) exacerbation (principal); I10 Essential (primary) hypertension; Z79.82 Long term (current) use of aspirin
CPT/HCPCS: 71010; 94664; 99284; J7512; Z7610

== ENCOUNTER 2018-03-12 14:02 | Emergency (ER) | END 2018-03-12 16:11 | disposition home or self-care (01) ==

== ENCOUNTER 2018-03-21 08:59 | Emergency (ER) | END 2018-03-21 11:15 | disposition home or self-care (01) ==

== ENCOUNTER 2018-05-11 15:35 | Day surgery (SDC) | END 2018-05-11 19:55 | disposition home or self-care (01) ==

== ENCOUNTER 2018-07-10 10:17 | Emergency (ER) | END 2018-07-10 12:29 | disposition home or self-care (01) ==